=== PATIENT | female | born 1980 | race Caucasian/White ===

== ENCOUNTER 2016-06-24 13:55 | Emergency (ER) | payer OTHER ==
[~2016-06-24 13:55] MED LIST: B CO1CAP; LAMO200T18; LORA-408
[2016-06-24] MEDS ORDERED: LORAZEPAM 2 MG INJ IV STA (14:21)
[2016-06-24] MEDS ORDERED: SOD CHLORIDE 0.9% 1,000 ML IV STA (14:21)
[2016-06-24] MEDS ORDERED: CHOL400T10 PO (14:34)
[2016-06-24] MEDS ORDERED: LEVE-5 PO (14:34)
[2016-06-24] MEDS ORDERED: FOLI-49 PO (14:35)
[2016-06-24 15:43] LABS: CREATININE 0.72 mg/dl (0.44-1.00)
[2016-06-24 16:02] LABS: BASOPHILS % 0.1 % (0.0-2.0); HEMATOCRIT 40.4 % (37.0-47.0); HEMOGLOBIN 13.6 g/dl (12.0-16.0); LYMPHOCYTES # 0.9 10^3/ul (0.8-2.9); LYMPHOCYTES % 6.9 % (15.0-51.0); MEAN CORPUSCULAR HEMOGLOBIN 29.4 pg (29.0-33.0); MEAN CORPUSCULAR HGB CONC 33.6 g/dl (32.0-37.0); MEAN CORPUSCULAR VOLUME 87.6 fl (82.0-101.0); MEAN PLATELET VOLUME 8.2 fl (7.4-10.4); MONOCYTE # 0.4 10^3/ul (0.3-0.9); MONOCYTES % 3.3 % (0.0-11.0); NEUTROPHIL # 11.8 10^3/ul (1.6-7.5); NEUTROPHILS % 89.7 % (39.0-77.0); PLATELET COUNT 214 10^3/UL (140-440); RED BLOOD COUNT 4.61 10^6/ul (4.20-5.40); RED CELL DISTRIBUTION WIDTH 12.4 % (11.5-14.5); UNCORRECTED WBC 13.1 10^3/ul (4.8-10.8); WHITE BLOOD COUNT 13.1 10^3/ul (4.8-10.8)
[2016-06-24 16:09] LABS: CONDITION 1
[2016-06-24 16:35] VITALS: BP 102/66; PULSE 72; RESP 16
--- NOTE | 2016-06-24 18:31 | ERD ---
ER Documentation Chief Complaint Date/Time DATE: 06/24/16 TIME: 18:30 Chief Complaint Possible seizure HPI Patient is a 36-year-old female with seizures who presents with a possible seizure. She said that she had pizza at 12:30 PM and then she said that she woke up with a possible seizure which she says was "petite mal". She says that she takes Keppra. She said that she woke up and she was on her floor. Upon review of old medical records this is the patient's sixth visit to the ER since 2008. She does not know the name of her primary doctor. ROS All systems reviewed and are negative except as per history of present illness. Medications Home Meds Reported Medications Folic Acid* (Folic Acid*) 1 Mg Tablet, 1 MG PO DAILY, TAB 06/24/16 Cholecalciferol* (Vitamin D*) 400 Unit Tablet, 400 UNIT PO DAILY, TAB 06/24/16 Levetiracetam* (Keppra*) 500 Mg Tablet, 500 MG PO BID, TAB 06/24/16 Discontinued Reported Medications Vitamin B Comp W-C* (Bee With C*) 1 Cap Capsule 11/29/09 Lamotrigine* (Lamictal*) 200 Mg Tablet 11/29/09 Lorazepam (Ativan) 1 Mg Tablet 11/29/09 Allergies Allergies: Coded Allergies: Penicillins (Verified Allergy, Mild, 06/24/16) PMhx/Soc History of Surgery: No Anesthesia Reaction: No Hx Neurological Disorder: Yes (SEIZURE ([place] KEPPRA)) Hx Respiratory Disorders: No Hx Cardiac Disorders: No Hx Psychiatric Problems: Yes (ANXIETY) Hx Miscellaneous Medical Probl: No Hx Alcohol Use: No Hx Substance Use: No Hx Tobacco Use: No Smoking Status: Never smoker FmHx Family History: diabetes Physical Exam Vitals Vital Signs Date Time Temp Pulse Resp B/P Pulse Ox O2 Delivery O2 Flow Rate FiO2 06/24/16 16:35 72 16 102/66 98 Room Air Physical Exam Const: No acute distress Head: Atraumatic Eyes: Normal Conjunctiva ENT: Normal External Ears, Nose and Mouth. Neck: Full range of motion..~ No meningismus. Resp: Clear to auscultation bilaterally Cardio: Regular rate and rhythm, no murmurs Abd: Soft, non tender, non distended. Normal bowel sounds Skin: No petechiae or rashes Back: No midline or flank tenderness Ext: No cyanosis, or edema Neur: Awake and alert, cranial nerves II through XII are intact, strength is 5 out of 5 in all 4 extremities Psych: Normal Mood and Affect Result Diagram: 06/24/16 1510 06/24/16 1510 Results 24 hrs Laboratory Tests Test 06/24/16 15:10 06/24/16 15:28 Anion Gap 14 Basophils # 0.010^3/ul Basophils % 0.1% Blood Urea Nitrogen 10mg/dl Calcium Level 9.0mg/dl Carbon Dioxide Level 26mmol/L Chloride Level 105mmol/L Creatinine 0.72mg/dl Eosinophils # 0.010^3/ul Eosinophils % 0.0% Glucose Level 105mg/dl Hematocrit 40.4% Hemoglobin 13.6g/dl Lymphocytes # 0.910^3/ul Lymphocytes % 6.9% Mean Corpuscular Hemoglobin 29.4pg Mean Corpuscular Hemoglobin Concent 33.6g/dl Mean Corpuscular Volume 87.6fl Mean Platelet Volume 8.2fl Monocytes # 0.410^3/ul Monocytes % 3.3% Neutrophils # 11.810^3/ul Neutrophils % 89.7% Nucleated Red Blood Cells # 0.010^3/ul Nucleated Red Blood Cells % 0.0/100WBC Platelet Count 34418^3/UL Potassium Level 4.0mmol/L Red Blood Count 4.6110^6/ul Red Cell Distribution Width 12.4% Sodium Level 141mmol/L White Blood Count 13.110^3/ul Bedside Glucose 78mg/dL Current Medications Medications (Trade) Dose Ordered Sig/Maryjo Route PRN Reason Start Time Stop Time Status Last Admin Dose Admin Sodium Chloride (NS) 1,000 ml @ 1,000 mls/hr Q1H STAT IV 06/24/16 14:21 06/24/16 15:20 DC 06/24/16 14:53 Lorazepam (Ativan) 0.5 mg ONCE STAT IV 06/24/16 14:21 06/24/16 14:22 DC Procedures/MDM Patient is a 36-year-old female with seizures who presents with a seizure. The patient had a workup which was basically normal. The patient was given Ativan to prevent further seizure. The patient will be discharged and can follow-up with her primary doctor within 24-48 hours. The patient can return sooner for any worsening symptoms. At this point I doubt intracranial hemorrhage or mass. I believe the risk of doing a CT scan of the brain outweigh the benefits. Departure Diagnosis: Primary Impression: Seizure Additional Impression: Dizziness Condition: Fair Patient Instructions: Dizziness, Unk Cause, Seizure, Recurrent [Adult] Referrals: Your doctor Additional Instructions: Call your primary care doctor TOMORROW for an appointment during the next 1-2 days.See the doctor sooner or return here if your condition worsens before your appointment time. LUIS ENRIQUE PASTRANA MD Jun 24, 2016 18:31
== END 2016-06-24 16:50 | disposition home or self-care (01) ==
LOC: E/R 13:55
DX: G40.909 Epilepsy, unspecified, not intractable, without status epilepticus (principal); R40.2252 Coma scale, best verbal response, oriented, at arrival to emergency department; R42 Dizziness and giddiness
CPT/HCPCS: 80048; 82962; 85025; J7030; Z7502